=== PATIENT | male | born 1935 | race Caucasian/White ===

== ENCOUNTER → 2018-04-09 | Outpatient (CLI) | payer OTHER ==
--- NOTE | 2018-04-09 21:08 | RAD ---
Right inguinal duplex ultrasound 04/09/2018 CLINICAL HISTORY: Right groin pain and bruising with history of fall. Catheterization procedure performed last week. TECHNIQUE: Using a combination of real time ultrasound imaging and color-flow and pulse Doppler imaging techniques, duplex evaluation of the right common femoral artery and vein with additional attention to the area of the patient's bruising was performed. Multiple images were obtained. FINDINGS: The right common femoral artery and vein are patent. No pseudoaneurysm is seen. No abnormal fluid collection is noted. No hematoma is seen in the area of the patient's bruising. IMPRESSION: Negative study. Electronically signed by: Neto Ortega MD (04/09/2018 9:05 PM) [facility]
== END | disposition home or self-care (01) ==
LOC: US 18:12
PROVIDERS: ATTEND Pediatrics Neonatal-Perinatal Medicine
DX: R10.31 Right lower quadrant pain (principal)
CPT/HCPCS: 76881